=== PATIENT | male | born 1970 | race Caucasian/White ===

== ENCOUNTER → 2022-09-25 | Day surgery (SDC) | payer MEDICARE, MEDICAID ==
[~2022-09-25] MED LIST: Iron Sucrose Complex 200 MG in Sodium Chloride 0.9% 100 ML IVPB SCH; Sodium Chloride 0.9% 1,000 ML IV SCH
== END ==
LOC: CSHSDC 10:54
PROVIDERS: ATTEND Student in an Organized Health Care Education/Training Program
DX: D64.9 Anemia, unspecified (principal)
CPT/HCPCS: 96365; J1756; J3490

== ENCOUNTER 2023-11-17 15:40 | Outpatient (CLI) | payer MEDICARE, MEDICAID | END 2023-11-17 15:41 | disposition home or self-care (01) | LOC: CSHRAD 15:40 | PROVIDERS: ATTEND Internal Medicine Hematology & Oncology | DX: Z01.818 Encounter for other preprocedural examination (principal); C20 Malignant neoplasm of rectum; D50.0 Iron deficiency anemia secondary to blood loss (chronic); R94.31 Abnormal electrocardiogram [ECG] [EKG] | CPT/HCPCS: 93005; 93010 ==

== ENCOUNTER 2024-05-16 10:18 | Outpatient (CLI) | payer MEDICARE, MEDICAID ==
[2024-05-16 11:56] LABS: #Basophils 0.02 10x3/uL (0.0-0.2); #Eosinophils 0.01 10x3/uL (0.0-0.5); #Monocytes 0.95 10x3/uL (0.0-1.1); #Neutrophils 13.73 10x3/uL (1.5-8.4); %Basophils 0.1 % (0.0-2.0); %Eosinophils 0.1 % (0.0-6.0); %Lymphocytes 1.9 % (18.0-47.0); %Monocytes 6.3 % (0.0-10.0); %Neutrophils 90.8 % (40.0-75.0); Hematocrit 28.1 % (38.8-50.0); Hemoglobin 8.5 g/dL (13.5-17.5); Mean Corpuscular HGB CONC 30.2 g/dL (32.0-36.0); Mean Corpuscular Hemoglobin 26.6 pg (27.0-33.0); Mean Corpuscular Volume 88.1 fL (81.2-95.1); Mean Platelet Volume 9.7 fL (7.4-10.4); Platelet Count 347 10x3/uL (150-450); Red Blood Cell (RBC) Count 3.19 10x6/uL (4.32-5.72); White Blood Cell (WBC) Count 15.1 10x3/uL (3.5-10.5)
[2024-05-16 13:11] LABS: ALT (SGPT) 15 U/L (8-55); AST (SGOT) 26 U/L (5-34); Albumin 2.6 g/dL (3.5-5.0); Alkaline Phosphatase 105 U/L (40-110); Anion Gap 14 mmol/L (10-20); BUN (Urea Nitrogen) 11 mg/dL (8.4-25.7); Bilirubin, Direct 0.2 mg/dL (0.1-0.3); Bilirubin, Total 0.3 mg/dL (0.2-1.2); Calc. Creatinine Clearance 0 mL/min (70-130); Calcium 8.2 mg/dL (7.8-10.44); Carbon Dioxide 23 mmol/L (22-29); Chloride 104 mmol/L (98-107); Estimated GFR 112; Glucose 107 mg/dL (70-105); Potassium 3.4 mmol/L (3.5-5.1); Protein, Total 6.3 g/dL (6.0-8.3); Sodium 138 mmol/L (136-145)
== END 2024-05-16 10:19 | disposition home or self-care (01) ==
LOC: CSHLAB 10:18
PROVIDERS: ATTEND Surgery
DX: Z01.812 Encounter for preprocedural laboratory examination (principal); C20 Malignant neoplasm of rectum
CPT/HCPCS: 80048; 80076; 85025

== ENCOUNTER 2024-05-19 07:00 | Day surgery (SDC) | payer MEDICARE, MEDICAID ==
[2024-05-16 10:05] VITALS: BMI 28.5
[2024-05-19] MEDS ORDERED: CEFAZOLIN 2 GM VIAL ONE (08:33)
[2024-05-19] MEDS ORDERED: Bupivacaine/Epinephrine 0.25% 30 ML VIAL ONE (08:33)
[2024-05-19] MEDS ORDERED: PROPOFOL 20 ML ONE ×2 (08:34→09:19)
[2024-05-19] MEDS ORDERED: Lidocaine 1% PF 5 ML VIAL ONE (08:34)
[2024-05-19] MEDS ORDERED: fentaNYL 50 mcg/mL 1 mL Vial ONE (08:34)
[2024-05-19] MEDS ORDERED: ceFOXitin 1 GM VIAL ONE (08:44)
[2024-05-19] MEDS ORDERED: Midazolam HCl 2 mg/2 ml Vial ONE (08:50)
[2024-05-19] MEDS ORDERED: Ondansetron PF 4 MG/2 ML Vial ONE (09:06)
[2024-05-19] MEDS ORDERED: Dexamethasone 4 mg/ml Vial ONE (09:06)
[2024-05-19] MEDS ORDERED: Lidocaine 2% 6 ML (Jelly) SYR ONE (09:19)
== END 2024-05-19 10:46 | disposition home or self-care (01) ==
LOC: CSHSDC 07:00
PROVIDERS: ATTEND Surgery
PROC: 0DBQ7ZZ Excision of Anus, Via Natural or Artificial Opening (ICD-10-PCS; principal; 2024-05-19)
DX: C20 Malignant neoplasm of rectum (principal); I10 Essential (primary) hypertension; E78.00 Pure hypercholesterolemia, unspecified; G40.909 Epilepsy, unspecified, not intractable, without status epilepticus; D64.9 Anemia, unspecified; Z88.8 Allergy status to other drugs, medicaments and biological substances; Z79.899 Other long term (current) drug therapy
CPT/HCPCS: 46270; J0694; J1100; J2250; J2405; J2704; J3010; 88305

== ENCOUNTER 2024-06-26 12:46 | Outpatient (CLI) | payer MEDICARE, MEDICAID ==
[~2024-06-26 12:46] MED LIST changes: +Iopamidol 300 61% 100 ML VIAL FS ONE; -Iron Sucrose Complex 200 MG in Sodium Chloride 0.9% 100 ML IVPB SCH; +Magnevist 469MG/ML 20 ML VIAL ONE; -Sodium Chloride 0.9% 1,000 ML IV SCH
== END 2024-06-26 12:47 | disposition home or self-care (01) ==
LOC: CSHMRI 12:46
PROVIDERS: ATTEND Internal Medicine Hematology & Oncology
DX: C20 Malignant neoplasm of rectum (principal); D50.0 Iron deficiency anemia secondary to blood loss (chronic); R30.0 Dysuria; R91.8 Other nonspecific abnormal finding of lung field; K22.9 Disease of esophagus, unspecified
CPT/HCPCS: 71260; 72197; 74160; Q9967